=== PATIENT | female | born 1970 | race Two or more races ===

== ENCOUNTER 2020-02-12 17:53 | Inpatient (IN) | payer SELFPAY ==
[~2020-02-12] VITALS: Ht 162.6 cm; Wt 79.4 kg
[2020-02-12 18:08] VITALS: BP 148/90
--- NOTE | 2020-02-12 18:18 | Emergency Room Report ---
History of Present Illness General Chief Complaint: Dizziness Source: Patient, EMS Present Illness HPI 49-year-old female with past medical history of hypertension brought in by ambulance with complaint of dizziness. Dizziness began yesterday while she was at work. Highly positional. Sudden onset. Associated with nausea and nonbloody nonbilious vomiting. Episodes last for 10 seconds at a time and she has had 2 episodes since yesterday. Denies headache, vision changes, head trauma, neck pain, rash, recent travel/ hospitalization/sick contacts. Denies focal weakness The patient's symptoms were gradual onset, severity was moderate, duration since 2 days. Quality: Dizzy Severity: Mild Past medical history: HTN Past surgical history: None Smoking: Denies Alcohol use: Only on holidays Drug use: Denies Review of systems: CONST: No fevers or chills, No night sweats PULMONARY: No productive cough, No shortness of breath CARDIAC: No chest pain, No palpitations GI: + vomiting, +nausea; No diarrhea , No melena_or_BRBPR : No dysuria, No hematuria, No discharge NEURO: +dizziness; No new_focal_weakness_or_numbness, No confusion, No vision changes 14 point Review of Systems is otherwise negative except per HPI Physical Exam: GENERAL: Awake_alert_ nontoxic, no acute distress Spo2 100% on RA -normal EYES: Extraocular muscles are intact. Conjunctivae clear. Lids without swelling ENT: External nose and ear normal_in_appearance. Oropharynx clear. Head_ atraumatic, Moist_oral_mucosa NECK: No JVD. No meningismus. No thyromegaly. Supple. Trachea midline RESP: Normal respiratory effort. Symmetric rise. No stridor. Clear_to_ auscultation_No_rales_No_wheezes CARDIAC: Regular rate and regular rhythm on_auscultation No_significant pedal edema. ABDOMEN: Soft. Nondistended. Nontender_No_rebound_or_guarding. MSK: Normal muscle tone, without rigidity. Extremities without asymmetric deformity or swelling. SKIN: Warm and dry. No visible cyanosis or pallor NEUROLOGIC: Alert, oriented x3. Motor_and_sensation_grossly_intact. No truncal ataxia. Gait_normal Psych: Normal mood and affect, normal judgment and insight - COORDINATION OF CARE Case was discussed with: Patient Any labs and imaging that were ordered were interpreted as part of the medical decision making: Medical Decision Making/Plan: Differential diagnosis for the patients symptoms include causes of peripheral vertigo (including BPPV, vestibular neuritis, Menieres disease, viral labyrinthitis), causes of central vertigo (including cerebellar ischemic stroke , hemorrhagic stroke, acoustic neuroma, vertebrobasilar insufficiency), malignant arrhythmias, obstructive heart disease (critical aortic stenosis, hypertrophic cardiomyopathy), acute anemia, severe dehydration, electrolyte abnormalities, among others. Patient's exam shows no focal neurologic deficits. No abnormal cerebellar signs or nystagmus. She is ambulatory without ataxia. Vascular examination in the bilateral upper and lower extremities is equal and symmetric. Symptoms are highly positional. EKG shows no signs of malignant arrhythmia such as Brugada syndrome, delta wave , epsilon wave, significant heart block, or QTc >500. CXR shows NAD. Troponin is negativex1. Labs show no severe electrolyte derangement such as severe hyponatremia, acidosis, or hypoglycemia. She was insulin and found to be hypokalemic and was repleted here in the emergency department. The patient denies any external blood loss and has no significant pallor or evidence of acute anemia as a cause of their symptoms. Hemoglobin is not severely low, and acute blood transfusion is not indicated. In addition, the patient has no loud murmur or evidence of significant obstructive heart disease, symptoms are not in the setting of exertion. The patient is neurologically intact, with normal cerebellar exam, without any evidence of central vertigo as a cause of their symptoms. They appear well hydrated without any evidence of severe dehydration or acute hypovolemia. The patient was observed for a period of time, with symptoms improved, and no emergent cause of their symptoms. The patient appears stable for discharge and to follow up with their regular doctor. Pertinent results reviewed with the patient. I educated the patient on the current treatment plan including the risks, benefits, and alternatives. I also discussed the extent and limitations of the current evaluation. The patient expressed understanding and agreement with plan. I recommended PMD follow-up within 1-2 days. Also advised that the patient return to the Emergency Department as soon as possible if they experience any new, persistent, or worsening symptoms. 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 Patient History Last Menstrual Period: na Nursing Documentation-PMH Past Medical History: No History, Except For Hx Hypertension: Yes Physical Exam Vital Signs Date Time Temp Pulse Resp B/P (MAP) Pulse Ox O2 Delivery O2 Flow Rate FiO2 02/12/20 17:48 98.4 88 16 148/90 (109) 98 Room Air Sp02 EP Interpretation: reviewed, normal Medical Decision Making Diagnostic Impression: Primary Impression: Dizziness Additional Impressions: Vertigo HTN (hypertension) Nausea & vomiting EKG Diagnostic Results BRENDEN Kenyon 12-lead EKG (interpreted by me) Time: 1758 Indication: Rhythm analysis Tracing visualized and Interpreted by . Rhythm: Normal sinus rhythm Rate: 66 bpm QTc: 454 Morphology: No_significant_ST_elevations_or_depressions, No STEMI Impression: Normal_sinus_rhythm_without_significant_abnormality Chest X-Ray Diagnostic Results Chest X-Ray Diagnostic Results : BRENDEN Kenyon Chest X-Ray: Views: [ 1 ] view(s) Indication: Dizziness Findings: Normal heart size. Mediastinum normal. No infiltrate. Impression: No acute disease The X-ray(s) were independently viewed and interpreted contemporaneously Electronically signed by Marycruz rivera DO Reevaluation Time: 18:47 Last Vital Signs Date Time Temp Pulse Resp B/P (MAP) Pulse Ox O2 Delivery O2 Flow Rate FiO2 02/12/20 18:08 98.4 88 16 148/90 98 Room Air Status: improved Disposition: HOME, SELF-CARE Admit Decision Time: 18:47 Condition: Stable Scripts Ondansetron Odt* (ZOFRAN ODT*) 4 Mg Tab.rapdis 4 MG BC EVERY 8 HOURS, #10 TAB 0 Refills Prov: Marycruz Kenny.O. 02/12/20 Diphenhydramine HCl (Benadryl) 25 Mg Capsule 25 MG PO Q4HR for vertigo for 7 Days, #28 CAP Prov: Marycruz Kenny.O. 02/12/20 Meclizine Hcl* (VERTICALM*) 25 Mg Tablet 25 MG ORAL THREE TIMES A DAY for dizziness for 7 Days, #21 TAB Prov: Marycruz Kenny.O. 02/12/20 Patient Instructions: Vertigo Additional Instructions: Instructions for patient/quill skinner: Follow up with your physician in 1 to 2 days for referral to an ENT specialist to evaluate your peripheral cause of vertigo. Be careful taking meclizine as it can make you drowsy. Do not drive or operate heavy machinery while taking it. Eat healthy foods and limit your salt intake. Follow-up with your doctor sooner if your condition requires a more timely clinical reevaluation. Return to the emergency department immediately if you feel that your condition is worsening or if you have any new or concerning symptoms. Review your discharge instructions and take any prescriptions given as instructed. Marycruz Kenny D.O. Feb 12, 2020 18:18
[2020-02-12] MEDS ORDERED: Meclizine 25mg tab ORAL PRN (18:30)
[2020-02-12 18:31] LABS: ANION GAP 12 mmol/L (5-15); BLOOD UREA NITROGEN 15 mg/dL (7-18); CALCIUM 10.4 MG/DL (8.5-10.1); CARBON DIOXIDE 32 MMOL/L (21-32); CHLORIDE 94 MMOL/L (98-107); CREATININE 1.1 MG/DL (0.55-1.30); POTASSIUM 3.1 MMOL/L (3.5-5.1); SODIUM 138 MMOL/L (136-145)
[2020-02-12 18:34] LABS: BASOPHILS % (AUTO) 1.2 % (0.0-2.0); HEMATOCRIT 45.3 % (37.0-47.0); HEMOGLOBIN 15.1 G/DL (12.0-16.0); LYMPHOCYTES % (AUTO) 18.4 % (20.0-45.0); MEAN CORPUSCULAR VOLUME 88 FL (80-99); MONOCYTES % (AUTO) 6.4 % (1.0-10.0); NEUTROPHILS % (AUTO) 73.9 % (45.0-75.0); PLATELET COUNT 323 K/UL (150-450); RED BLOOD COUNT 5.15 M/UL (4.20-5.40); RED CELL DISTRIBUTION WIDTH 12.6 % (11.6-14.8); WHITE BLOOD COUNT 8.9 K/UL (4.8-10.8)
--- NOTE | 2020-02-12 18:36 | Diagnostic Imaging Report ---
EXAM: CT Head Without Intravenous Contrast CLINICAL HISTORY: DIZZY TECHNIQUE: Axial computed tomography images of the head/brain without intravenous contrast. CTDI is 53mGy and DLP is 965 mGy-cm. One or more of the following dose reduction techniques were used: automated exposure control, adjustment of the mA and/or kV according to patient size, use of iterative reconstruction technique. COMPARISON: No relevant prior studies available. FINDINGS: Brain: Unremarkable. No hemorrhage. No significant white matter disease. No edema. Ventricles: Unremarkable. No ventriculomegaly. Bones/joints: Unremarkable. No acute fracture. Soft tissues: Unremarkable. Sinuses: Unremarkable as visualized. No acute sinusitis. Mastoid air cells: Unremarkable as visualized. No mastoid effusion. IMPRESSION: 1. No acute intracranial abnormality. 2. Unremarkable study.
--- NOTE | 2020-02-12 18:36 | Diagnostic Imaging Report ---
EXAM: XR Chest, 1 View CLINICAL HISTORY: DIZZY TECHNIQUE: Frontal view of the chest. COMPARISON: No relevant prior studies available. FINDINGS: Lungs: Low lung volumes with bronchovascular crowding. No consolidation, pleural effusion, or pneumothorax. Pleural space: See above. Heart: Unremarkable. No cardiomegaly. Mediastinum: Unremarkable. Bones/joints: No acute abnormality IMPRESSION: 1. Low lung volumes with bronchovascular crowding. 2. Otherwise no acute cardiopulmonary disease. 3. If there is continued concern, recommend frontal and lateral chest radiographs or CT.
[2020-02-12 18:42] LABS: ALANINE AMINOTRANSFERASE 41 U/L (12-78); ALBUMIN 4.8 G/DL (3.4-5.0); ALBUMIN/GLOBULIN RATIO 0.9 (1.0-2.7); ALKALINE PHOSPHATASE 78 U/L (46-116); ASPARTATE AMINO TRANSFERASE 24 U/L (15-37); BILIRUBIN,TOTAL 0.6 MG/DL (0.2-1.0)
[2020-02-12] MEDS ORDERED: ONDANSETRON ODT4 MG BC (18:50)
[2020-02-12] MEDS ORDERED: VERTICALM25 MG ORAL (18:50)
[2020-02-12] MEDS ORDERED: BENADRYL25 M3 PO (18:50)
[2020-02-12 18:57] VITALS: BP 152/79
[2020-02-12 21:00] VITALS: BP 142/82
[2020-02-12 23:00] VITALS: BP 138/78
[2020-02-13] MEDS ORDERED: Ketorolac 30mg Inj IV PRN (00:15)
[2020-02-13 04:00] VITALS: BP 141/70
[2020-02-13 05:46] LABS: BASOPHILS % (AUTO) 0.9 % (0.0-2.0); EOSINOPHILS % (AUTO) 0.2 % (0.0-3.0); HEMATOCRIT 41.6 % (37.0-47.0); HEMOGLOBIN 13.6 G/DL (12.0-16.0); LYMPHOCYTES % (AUTO) 25.9 % (20.0-45.0); MEAN CORPUSCULAR VOLUME 89 FL (80-99); MONOCYTES % (AUTO) 7.4 % (1.0-10.0); NEUTROPHILS % (AUTO) 65.5 % (45.0-75.0); PLATELET COUNT 251 K/UL (150-450); RED BLOOD COUNT 4.68 M/UL (4.20-5.40); RED CELL DISTRIBUTION WIDTH 12.1 % (11.6-14.8); WHITE BLOOD COUNT 8.8 K/UL (4.8-10.8)
[2020-02-13 06:13] LABS: ANION GAP 5 mmol/L (5-15); BLOOD UREA NITROGEN 14 mg/dL (7-18); CALCIUM 8.7 MG/DL (8.5-10.1); CARBON DIOXIDE 30 MMOL/L (21-32); CHLORIDE 103 MMOL/L (98-107); POTASSIUM 3.3 MMOL/L (3.5-5.1); SODIUM 137 MMOL/L (136-145)
[2020-02-13 08:00] VITALS: BP 141/72
[2020-02-13] MEDS ORDERED: DiphenhydrAMINE 50mg/ml Inj IVP PRN (08:30)
--- NOTE | 2020-02-13 08:34 | History & Physical ---
History and Physical History & Physicial Patient seen and examine. Full Dictation completed . Sophy Palacios MD Feb 13, 2020 08:34
--- NOTE | 2020-02-13 08:36 | General Progress Note ---
Assessment/Plan Assessment/Plan: Full Dictation in progress Plan: 1- Acute Vertigo MRI-Head Neuro consult- message left for Dr Salgado, anticipating his call symptomatic mgt Subjective Allergies: Coded Allergies: ACETAMINOPHEN (Verified Allergy, Unknown, 02/12/20) HYDROCODONE (Verified Allergy, Unknown, 02/12/20) Objective Last 24 Hour Vital Signs Date Time Temp Pulse Resp B/P (MAP) Pulse Ox O2 Delivery O2 Flow Rate FiO2 02/13/20 08:00 97.5 79 20 141/72 (95) 95 02/13/20 04:00 97.0 72 16 141/70 (93) 97 02/13/20 00:28 98.0 72 18 138/72 98 Room Air 02/13/20 00:28 Room Air 02/12/20 23:00 98.1 71 20 138/78 96 Room Air 02/12/20 21:00 98.0 68 20 142/82 96 Room Air 02/12/20 18:57 98.4 77 17 152/79 95 Room Air 02/12/20 18:08 98.4 88 16 148/90 98 Room Air 02/12/20 18:08 88 16 Room Air 02/12/20 17:48 98.4 88 16 148/90 (109) 98 Room Air Intake and Output 02/12/20 02/13/20 19:00 07:00 Intake Total 450 ml Output Total 0 ml Balance 0 ml 450 ml Intake Oral 450 ml Output Urine Total 0 ml # Voids 2 Laboratory Tests 02/12/20 18:00: White Blood Count 8.9, Red Blood Count 5.15, Hemoglobin 15.1, Hematocrit 45.3, Mean Corpuscular Volume 88, Mean Corpuscular Hemoglobin 29.4, Mean Corpuscular Hemoglobin Concent 33.4, Red Cell Distribution Width 12.6, Platelet Count 323, Mean Platelet Volume 8.7, Neutrophils (%) (Auto) 73.9, Lymphocytes (%) (Auto) 18.4L, Monocytes (%) (Auto) 6.4, Eosinophils (%) (Auto) 0.0, Basophils (%) (Auto ) 1.2, Sodium Level 138, Potassium Level 3.1L, Chloride Level 94L, Carbon Dioxide Level 32, Anion Gap 12, Blood Urea Nitrogen 15, Creatinine 1.1, Estimat Glomerular Filtration Rate 52.8, Glucose Level 145H, Calcium Level 10.4H, Total Bilirubin 0.6, Aspartate Amino Transf (AST/SGOT) 24, Alanine Aminotransferase ( ALT/SGPT) 41, Alkaline Phosphatase 78, Troponin I 0.000, Pro-B-Type Natriuretic Peptide 70, Total Protein 10.0H, Albumin 4.8, Globulin 5.2, Albumin/Globulin Ratio 0.9L, Human Chorionic Gonadotropin, Quant 3 02/12/20 23:59: Troponin I 0.000 02/13/20 04:50: White Blood Count 8.8, Red Blood Count 4.68, Hemoglobin 13.6, Hematocrit 41.6, Mean Corpuscular Volume 89, Mean Corpuscular Hemoglobin 29.1, Mean Corpuscular Hemoglobin Concent 32.7, Red Cell Distribution Width 12.1, Platelet Count 251, Mean Platelet Volume 8.4, Neutrophils (%) (Auto) 65.5, Lymphocytes (%) (Auto) 25.9, Monocytes (%) (Auto) 7.4, Eosinophils (%) (Auto) 0.2, Basophils (%) (Auto ) 0.9, Sodium Level 137, Potassium Level 3.3L, Chloride Level 103, Carbon Dioxide Level 30, Anion Gap 5, Blood Urea Nitrogen 14, Creatinine 1.0, Estimat Glomerular Filtration Rate 58.9, Glucose Level 116H, Calcium Level 8.7, Hemoglobin A1c 5.9, Thyroid Stimulating Hormone (TSH) 1.483 Height (Feet): 5 Height (Inches): 4.00 Weight (Pounds): 175 Sophy Palacios MD Feb 13, 2020 08:36
[2020-02-13] MEDS: hydroCHLOROthiazide 25mg cap ORAL SCH (08:41)
[2020-02-13] MEDS: Pantoprazole Inj IVP SCH (08:42)
[2020-02-13] MEDS: Enoxaparin 40mg Inj SUBQ SCH (08:42)
--- NOTE | 2020-02-13 10:00 | History and Physical Report ---
DATE OF ADMISSION: 02/12/2020 SOURCE OF HISTORY: Patient and EMR. HISTORY OF PRESENT ILLNESS: The patient is a 49-year-old female with a history of psychiatric problem, with unremarkable past medical history, who presented with worsening of the vertigo associated with nausea for the last three days. The patient reported that the symptoms are acute. Denies any weakness. Denies any sensory problems in the extremities. She reported the severity as such that she was not able to keep working, standing, or walking. ALLERGIES: Acetaminophen. FAMILY HISTORY: Noncontributory. SOCIAL HISTORY: The patient lives with her mother. Denies history of illicit drug abuse, smoking, or alcohol abuse. MEDICATIONS: Current hospital medications including, but not limited to, hydrochlorothiazide, Lovenox. PAST MEDICAL AND SURGICAL HISTORY: Unemarkable. PHYSICAL EXAMINATION: VITAL SIGNS: Blood pressure 130/80, temperature 98.2, pulse oximetry 98% on room air, respiratory rate 18, temperature 97. HEAD AND NECK: Atraumatic and normocephalic. CHEST: Clear to auscultation. HEART: S1, S2. Regular rate and rhythm. ABDOMEN: Soft. No organomegaly. MUSCULOSKELETAL: No gross focal motor deficit. NEUROLOGIC: The patient is awake, alert, and oriented x3. No nystagmus. No gross lateralized focal motor deficit is appreciated. LABORATORY DATA: Dated 02/12/2020 shows sodium 138. WBC 8.9, platelets 323,000. ASSESSMENT: 1. Acute vertigo. 2. Hypokalemia. 3. Hypercalcemia. 4. Abnormal blood sugar. 5. GI and DVT prophylaxes. PLAN OF CARE: We will provide symptomatic management. will order MRI brain. I agree with the admission to the medical floor. Sophy Palacios M.D. DR: MEL JOB#: [id number] CC: LEISA
[2020-02-13 12:00] VITALS: BP 153/88
[2020-02-13] MEDS: Meclizine 25mg tab ORAL PRN (13:55)
[2020-02-13 16:00] VITALS: BP 142/78
[2020-02-13 20:00] VITALS: BP 150/83
--- NOTE | 2020-02-13 21:10 | Cardiology Progress Note ---
Assessment/Plan Assessment/Plan The patient is seen and examined, full consult note is dictated. Objective Last 24 Hour Vital Signs Date Time Temp Pulse Resp B/P (MAP) Pulse Ox O2 Delivery O2 Flow Rate FiO2 02/13/20 20:45 Room Air 02/13/20 16:00 97.0 65 18 142/78 (99) 98 02/13/20 12:00 97.9 69 18 153/88 (109) 98 02/13/20 09:00 Room Air 02/13/20 08:00 97.5 79 20 141/72 (95) 95 02/13/20 04:00 97.0 72 16 141/70 (93) 97 02/13/20 00:28 98.0 72 18 138/72 98 Room Air 02/13/20 00:28 Room Air 02/12/20 23:00 98.1 71 20 138/78 96 Room Air Intake and Output 02/12/20 02/13/20 19:00 07:00 Intake Total 450 ml Output Total 0 ml Balance 0 ml 450 ml Intake Oral 450 ml Output Urine Total 0 ml # Voids 2 Laboratory Tests Test 02/12/20 23:59 02/13/20 04:50 Troponin I 0.000 ng/mL (0.000-0.056) White Blood Count 8.8 K/UL (4.8-10.8) Red Blood Count 4.68 M/UL (4.20-5.40) Hemoglobin 13.6 G/DL (12.0-16.0) Hematocrit 41.6 % (37.0-47.0) Mean Corpuscular Volume 89 FL (80-99) Mean Corpuscular Hemoglobin 29.1 PG (27.0-31.0) Mean Corpuscular Hemoglobin Concent 32.7 G/DL (32.0-36.0) Red Cell Distribution Width 12.1 % (11.6-14.8) Platelet Count 251 K/UL (150-450) Mean Platelet Volume 8.4 FL (6.5-10.1) Neutrophils (%) (Auto) 65.5 % (45.0-75.0) Lymphocytes (%) (Auto) 25.9 % (20.0-45.0) Monocytes (%) (Auto) 7.4 % (1.0-10.0) Eosinophils (%) (Auto) 0.2 % (0.0-3.0) Basophils (%) (Auto) 0.9 % (0.0-2.0) Sodium Level 137 MMOL/L (136-145) Potassium Level 3.3 MMOL/L (3.5-5.1) L Chloride Level 103 MMOL/L (98-107) Carbon Dioxide Level 30 MMOL/L (21-32) Anion Gap 5 mmol/L (5-15) Blood Urea Nitrogen 14 mg/dL (7-18) Creatinine 1.0 MG/DL (0.55-1.30) Estimat Glomerular Filtration Rate 58.9 mL/min (>60) Glucose Level 116 MG/DL (74-106) H Hemoglobin A1c 5.9 % (4.3-6.0) Calcium Level 8.7 MG/DL (8.5-10.1) Thyroid Stimulating Hormone (TSH) 1.483 uiU/mL (0.358-3.740) Abner Alonzo MD Feb 13, 2020 21:10
[2020-02-14] VITALS (7 sets, daily range): BP systolic 130–163; BP diastolic 76–87
[2020-02-14] MEDS: hydroCHLOROthiazide 25mg cap ORAL SCH (08:24)
[2020-02-14] MEDS: Meclizine 25mg tab ORAL PRN ×3 (08:24→22:58)
[2020-02-14] MEDS: Pantoprazole Inj IVP SCH (08:24)
[2020-02-14] MEDS: Enoxaparin 40mg Inj SUBQ SCH (08:31)
--- NOTE | 2020-02-14 09:06 | General Progress Note ---
Assessment/Plan Assessment/Plan: S: I am feeling better O: denies any YOUNG or blurry vision PHYSICAL EXAMINATION:HEAD AND NECK: Atraumatic and normocephalic. CHEST: Clear to auscultation.HEART: S1, S2. Regular rate and rhythm.ABDOMEN: Soft. No organomegaly. MUSCULOSKELETAL: No gross focal motor deficit. NEUROLOGIC: The patient is awake, alert, and oriented x3. No nystagmus. No gross lateralized focal motor deficit is appreciated. LABORATORY DATA: Dated 02/13/2020 reveiwd ASSESSMENT: 1. Acute vertigo. 2. Hypokalemia. 3. Hypercalcemia. 4. Abnormal blood sugar. 5. GI and DVT prophylaxes. PLAN OF CARE: pending MRI Pending Neurology eval Subjective Allergies: Coded Allergies: ACETAMINOPHEN (Verified Allergy, Unknown, 02/12/20) HYDROCODONE (Verified Allergy, Unknown, 02/12/20) Objective Last 24 Hour Vital Signs Date Time Temp Pulse Resp B/P (MAP) Pulse Ox O2 Delivery O2 Flow Rate FiO2 02/14/20 08:00 98.1 71 18 148/87 (107) 96 02/14/20 04:00 97.6 66 18 142/80 (100) 96 02/14/20 00:00 98.0 64 19 142/80 (100) 96 02/13/20 20:45 Room Air 02/13/20 20:00 98.2 68 19 150/83 (105) 95 02/13/20 16:00 97.0 65 18 142/78 (99) 98 02/13/20 12:00 97.9 69 18 153/88 (109) 98 Intake and Output 02/13/20 02/14/20 19:00 07:00 Intake Total 400 ml 480 ml Balance 400 ml 480 ml Intake Oral 400 ml 480 ml # Voids 2 3 Height (Feet): 5 Height (Inches): 4.00 Weight (Pounds): 175 Sophy Palacios MD Feb 14, 2020 09:06
--- NOTE | 2020-02-14 16:30 | Consultation ---
DATE OF CONSULTATION: 02/13/2020 CARDIOLOGY CONSULTATION CONSULTING PHYSICIAN: Abner Alonzo MD. REFERRING PHYSICIAN: Sophy Palacios MD. REASON FOR CONSULTATION: Management of dizziness/hypertension crisis. HISTORY OF PRESENT ILLNESS: Patient is a very unfortunate 49-year-old female with a prior history of hypertension who presented to the hospital with complaints of dizziness, which happened acutely associated with nausea and vomiting. According to patient, the dizziness lasted just about 10 seconds and she had 2 separate episodes. It is not quite clear whether the patient had vertigo, but she claims that dizziness was positional. At the time of arrival to this facility, blood pressure was 148/90 mmHg, heart rate was 88. A 12-lead electrocardiogram showed sinus rhythm at a rate of 66 with normal QT interval and no acute ischemic features. Chest x-ray showed low lung volumes, but no acute cardiopulmonary disease. Laboratory findings in the emergency department revealed normal troponin I level at 0 as well as normal proBNP at 70. The patient was admitted to Med/Surg unit. Cardiology consultation was made at request of Dr. Palacios to address and manage dizziness from cardiac standpoint. PAST MEDICAL HISTORY: Hypertension. PAST SURGICAL HISTORY: None. ALLERGIES: No known drug allergies. FAMILY HISTORY: No premature coronary artery disease in first-degree relatives. SOCIAL HISTORY: Denies any tobacco. She is a social drinker on holidays only. Denies any illicit drug use. REVIEW OF SYSTEMS: A 12-system review done essentially negative except as mentioned in history of present illness. MEDICATIONS: List of medications at home includes meclizine 25 mg 3 times a day, Benadryl 25 mg q.4h. for vertigo, and Zofran 4 mg q.8h. PHYSICAL EXAMINATION: VITAL SIGNS: Blood pressure was 148/90, pulse of 88, respirations 16, temperature 98.4 degrees Fahrenheit, O2 saturation 98% on room air. GENERAL: Patient is a very unfortunate 49-year-old female, in no apparent respiratory distress. HEENT: Atraumatic and normocephalic. Anicteric. Pupils are equal, round, and reactive to light and accommodation. Extraocular muscles intact. NECK: JVP less than 5 cm. No carotid bruit. Carotid upstrokes 2+ bilaterally. CARDIOVASCULAR: Normal S1 and S2. Regular rate and rhythm. No murmurs, gallops, or rubs. PMI is at fourth intercostal space in the midclavicular line. LUNGS: Clear to auscultation bilaterally. ABDOMEN: Soft, nontender, nondistended. No hepatosplenomegaly. Positive bowel sounds. EXTREMITIES: No evidence of edema, clubbing, or cyanosis. LABORATORY FINDINGS: Sodium is 138, potassium is 3.1, chloride 94, bicarbonate 32, BUN of 15, creatinine 1.1, glucose is 145, and calcium is 10.4. Troponin I is 0. ProBNP was 70. WBC 8.9, hemoglobin 15.1, hematocrit of 45.3, and platelet count 323. ASSESSMENT AND PLAN: Patient is a very unfortunate 49-year-old female seen in Cardiology consultation. 1. Dizziness. The patient requires to have further neurological assessment including possible MRI of brain to rule out the pathology. From cardiovascular standpoint, a 2D echocardiography will be done to assess left ventricular systolic and diastolic function. Blood pressure will be treated with preferably calcium channel efrain. We will place a hold on diuretic given possible intravascular volume depletion as there are signs of contraction alkalosis on the laboratory. There is also additional hypokalemia. I will continue managing the blood pressure throughout this hospitalization response to amlodipine 5 mg. 2. Hyperglycemia. We are awaiting the hemoglobin A1c for assessment of diabetes mellitus. I would like to thank Dr. Palacios for the courtesy of this consultation. Abner Alonzo M.D. DR: WENDY JOB#: [id number] CC:
--- NOTE | 2020-02-14 23:58 | Cardiology Progress Note ---
Assessment/Plan Assessment/Plan 1. Dizziness, possible intravascular volume depletion as there are signs of contraction alkalosis on the laboratory. 2. HTN, continue amlodipine 5 mg daily. 3. Hyperglycemia, normal HbA1C. Subjective Subjective No cardiac events reported. Objective Last 24 Hour Vital Signs Date Time Temp Pulse Resp B/P (MAP) Pulse Ox O2 Delivery O2 Flow Rate FiO2 02/14/20 21:00 Room Air 02/14/20 16:00 98.4 65 18 130/76 (94) 96 02/14/20 13:00 64 157/82 (107) 02/14/20 12:00 97.9 65 17 163/83 (109) 100 02/14/20 11:58 65 163/83 02/14/20 09:00 Room Air 02/14/20 08:00 98.1 71 18 148/87 (107) 96 02/14/20 04:00 97.6 66 18 142/80 (100) 96 02/14/20 00:00 98.0 64 19 142/80 (100) 96 Intake and Output 02/13/20 02/14/20 19:00 07:00 Intake Total 400 ml 480 ml Balance 400 ml 480 ml Intake Oral 400 ml 480 ml # Voids 2 3 2D Echo: LVEF 60%, RVSP 41 mmHg, Mild LVH Objective HEENT: Atraumatic and normocephalic. Anicteric. Pupils are equal, round, and reactive to light and accommodation. Extraocular muscles intact. NECK: JVP less than 5 cm. No carotid bruit. Carotid upstrokes 2+ bilaterally. CARDIOVASCULAR: Normal S1 and S2. Regular rate and rhythm. No murmurs, gallops, or rubs. PMI is at fourth intercostal space in the midclavicular line. LUNGS: Clear to auscultation bilaterally. ABDOMEN: Soft, nontender, nondistended. No hepatosplenomegaly. Positive bowel sounds. EXTREMITIES: No evidence of edema, clubbing, or cyanosis. Abner Alonzo MD Feb 14, 2020 23:58
[2020-02-15] VITALS: BP 128/73
[2020-02-15 04:00] VITALS: BP 122/72
[2020-02-15 08:00] VITALS: BP 135/62
[2020-02-15] MEDS: Pantoprazole Inj IVP SCH (08:20)
[2020-02-15] MEDS: Enoxaparin 40mg Inj SUBQ SCH (08:21)
[2020-02-15 12:00] VITALS: BP 128/68
--- NOTE | 2020-02-15 12:23 | General Progress Note ---
Assessment/Plan Status: stable Assessment/Plan: S: I am feeling better O: denies any YOUNG or blurry vision PHYSICAL EXAMINATION:HEAD AND NECK: Atraumatic and normocephalic. CHEST: Clear to auscultation.HEART: S1, S2. Regular rate and rhythm.ABDOMEN: Soft. No organomegaly. MUSCULOSKELETAL: No gross focal motor deficit. NEUROLOGIC: The patient is awake, alert, and oriented x3. No nystagmus. No gross lateralized focal motor deficit is appreciated. LABORATORY DATA: Dated 02/14/2020 reveiwd ASSESSMENT: 1. Acute vertigo. 2. Hypokalemia. 3. Hypercalcemia. 4. Abnormal blood sugar. 5. GI and DVT prophylaxes. PLAN OF CARE: pending MRI Pending Neurology eval Subjective Allergies: Coded Allergies: ACETAMINOPHEN (Verified Allergy, Unknown, 02/12/20) HYDROCODONE (Verified Allergy, Unknown, 02/12/20) Objective Last 24 Hour Vital Signs Date Time Temp Pulse Resp B/P (MAP) Pulse Ox O2 Delivery O2 Flow Rate FiO2 02/15/20 12:00 98.2 85 18 128/68 (88) 96 02/15/20 08:20 91 122/72 02/15/20 08:00 Room Air 02/15/20 08:00 98.0 82 18 135/62 (86) 96 02/15/20 04:00 98.7 91 18 122/72 (89) 95 02/15/20 00:00 98.6 100 18 128/73 (91) 95 02/14/20 21:00 Room Air 02/14/20 20:00 98.9 94 18 139/79 (99) 95 02/14/20 16:00 98.4 65 18 130/76 (94) 96 02/14/20 13:00 64 157/82 (107) Intake and Output 02/14/20 02/15/20 19:00 07:00 Intake Total 1200 ml 600 ml Balance 1200 ml 600 ml Intake Oral 600 ml Other 1200 ml # Voids 1 Height (Feet): 5 Height (Inches): 4.00 Weight (Pounds): 175 Sophy Palacios MD Feb 15, 2020 12:23
[2020-02-15 15:39] VITALS: BP 131/72
[2020-02-15] MEDS: Meclizine 25mg tab ORAL PRN ×2 (16:42→22:45)
--- NOTE | 2020-02-15 16:54 | Diagnostic Imaging Report ---
Indication: Vertigo Technique: MRI the brain performed utilizing T1 sagittal, T2 axial, T1 FLAIR axial, T2 FLAIR axial, T2*GRE and diffusion axial images without gadolinium. Comparison: Noncontrast CT of the head 02/12/2020 Findings: No diffusion abnormalities are seen on diffusion weighted imaging. There is no focal abnormal signal dropout on T2*/GRE. The sulci, ventricles and cisterns are within normal limits for age. There is no shift of midline structures. No significant extra-axial collections of fluid or blood are demonstrated.Expected signal flow voids are seen of the vessels of the skull base. Visualized mastoid air cells and paranasal sinuses are unremarkable. No focal bony calvarium or soft tissue lesions are seen. IMPRESSION: No acute intracranial abnormality
[2020-02-15 20:00] VITALS: BP 135/78
--- NOTE | 2020-02-15 20:06 | Cardiology Progress Note ---
Assessment/Plan Assessment/Plan 1. Dizziness, possible intravascular volume depletion as there are signs of contraction alkalosis on the laboratory. 2. HTN, well controlled, continue amlodipine. 3. Hyperglycemia, normal HbA1C. Subjective Subjective No cardiac events reported. Objective Last 24 Hour Vital Signs Date Time Temp Pulse Resp B/P (MAP) Pulse Ox O2 Delivery O2 Flow Rate FiO2 02/15/20 15:39 98.5 79 18 131/72 (91) 95 02/15/20 12:00 98.2 85 18 128/68 (88) 96 02/15/20 08:20 91 122/72 02/15/20 08:00 Room Air 02/15/20 08:00 98.0 82 18 135/62 (86) 96 02/15/20 04:00 98.7 91 18 122/72 (89) 95 02/15/20 00:00 98.6 100 18 128/73 (91) 95 02/14/20 21:00 Room Air Intake and Output 02/14/20 02/15/20 19:00 07:00 Intake Total 1200 ml 600 ml Balance 1200 ml 600 ml Intake Oral 600 ml Other 1200 ml # Voids 1 2D Echo: LVEF 60%, RVSP 41 mmHg, Mild LVH Objective HEENT: Atraumatic and normocephalic. Anicteric. Pupils are equal, round, and reactive to light and accommodation. Extraocular muscles intact. NECK: JVP less than 5 cm. No carotid bruit. Carotid upstrokes 2+ bilaterally. CARDIOVASCULAR: Normal S1 and S2. Regular rate and rhythm. No murmurs, gallops, or rubs. PMI is at fourth intercostal space in the midclavicular line. LUNGS: Clear to auscultation bilaterally. ABDOMEN: Soft, nontender, nondistended. No hepatosplenomegaly. Positive bowel sounds. EXTREMITIES: No evidence of edema, clubbing, or cyanosis. Abner Alonzo MD Feb 15, 2020 20:06
[2020-02-16] VITALS: BP 136/76
[2020-02-16 04:00] VITALS: BP 130/70
[2020-02-16 08:00] VITALS: BP 136/87
[2020-02-16] MEDS: Pantoprazole Inj IVP SCH (08:22)
[2020-02-16] MEDS: Meclizine 25mg tab ORAL PRN ×2 (08:24→14:40)
[2020-02-16] MEDS: Enoxaparin 40mg Inj SUBQ SCH (08:24)
--- NOTE | 2020-02-16 11:09 | General Progress Note ---
Assessment/Plan Status: stable Assessment/Plan: S: I am feeling better O: denies any YOUNG or blurry vision PHYSICAL EXAMINATION:HEAD AND NECK: Atraumatic and normocephalic. CHEST: Clear to auscultation.HEART: S1, S2. Regular rate and rhythm.ABDOMEN: Soft. No organomegaly. MUSCULOSKELETAL: No gross focal motor deficit. NEUROLOGIC: negative for lateralized abnormal finding. The patient is awake, alert, and oriented x3. No nystagmus. No gross lateralized focal motor deficit is appreciated. LABORATORY DATA: Dated 02/14/2020 reveiwd ASSESSMENT: 1. Acute vertigo. 2. Hypokalemia. 3. Hypercalcemia. 4. Abnormal blood sugar. 5. GI and DVT prophylaxes. PLAN OF CARE: Negative MRI Unremarkable exam Advised for outpatient followup for further workup Subjective Allergies: Coded Allergies: ACETAMINOPHEN (Verified Allergy, Unknown, 02/12/20) HYDROCODONE (Verified Allergy, Unknown, 02/12/20) Objective Last 24 Hour Vital Signs Date Time Temp Pulse Resp B/P (MAP) Pulse Ox O2 Delivery O2 Flow Rate FiO2 02/16/20 08:21 65 130/70 02/16/20 08:00 Room Air 02/16/20 08:00 97.9 61 18 136/87 (103) 98 02/16/20 04:00 97.6 65 18 130/70 (90) 97 02/16/20 00:00 97.9 63 18 136/76 (96) 98 02/15/20 21:00 Room Air 02/15/20 20:00 97.7 65 18 135/78 (97) 96 02/15/20 15:39 98.5 79 18 131/72 (91) 95 02/15/20 12:00 98.2 85 18 128/68 (88) 96 Intake and Output 02/15/20 02/16/20 19:00 07:00 Intake Total 1400 ml 800 ml Balance 1400 ml 800 ml Intake Oral 1400 ml 800 ml # Voids 5 3 Height (Feet): 5 Height (Inches): 4.00 Weight (Pounds): 175 Sophy Palacios MD Feb 16, 2020 11:09
[2020-02-16 11:49] VITALS: BP 131/81
[2020-02-16 16:00] VITALS: BP 143/85
--- NOTE | 2020-02-18 07:34 | Discharge Summary ---
Discharge Summary Discharge Summary _ DATE OF ADMISSION: 02/12/2020 DATE OF DISCHARGE: 02/16/2020 DISCHARGED BY: Dr. Palacios REASON FOR ADMISSION: 49 years old female with past medical history of hypertension, was brought by ambulance with complaint of dizziness. Dizziness started suddenly , the day prior to presentation to ED, while she was at work. Dizziness reported as highly positional, associated with nausea and nonbloody nonbilious vomiting. Episodes lasted for 10 seconds at a time . She already had few such episodes. She denied headache, vision changes, head trauma, neck pain, recent traveling/ hospitalizations/sick contact. She denied any focal weakness. Physical exam was essentially stable . Laboratory work-up revealed blood pressure 148/90 , otherwise stable vital signs. Patient initially was discharge from the emergency room with prescription for meclizine and instruction to follow-up with her primary care provider for referral to ENT to evaluate peripheral causes of vertigo. However patient had another episode of nausea and vomiting , was unable to get her balance. Patient subsequently admitted for further management. CT of the head revealed no evidence of acute intracranial bleeding. Laboratory work-up revealed potassium 3.1. Glucose 145. Calcium 10.4. Troponin negative. Urine test was negative. Chest x-ray revealed low lung volumes with bronchovascular crowding. Otherwise no acute cardiopulmonary pathology Calcium 10.4 Patient subsequently admitted to medical surgical floor for further management. CONSULTANTS: wire spiral binder Dr. Alonzo HOSPITAL COURSE: Patient admitted . Patient started on IV hydration. MRI of the brain revealed no acute intracranial abnormalities. Meclizine provided as needed. Potassium was replaced. Antiemetic provided as needed. Repeated troponin was negative as well. Echocardiogram demonstrated preserved ejection fraction of 60% with mild left ventricular hypertrophy. No evidence of wall motion abnormality. Per wire spiral binder dizziness was possibly due to intravascular volume depletion as there were signs of contraction alkalosis in the labs. Blood pressure was managed with calcium channel efrain. Hemoglobin A1c at goal 5.9. TSH within normal limits. GI prophylaxis provided.. With IV hydration calcium down to 8.7 Patient clinically stabilized and was ready for discharge home Patient was advised to follow-up with the ENT as outpatient FINAL DIAGNOSES: Acute vertigo Dizziness , possible due to intravascular volume depletion Hypertension Hyperglycemia/ with normal hemoglobin A1c Hypokalemia Hypercalcemia -resolved DISCHARGE MEDICATIONS: See Medication Reconciliation list. DISCHARGE INSTRUCTIONS: Patient was discharged home. Follow-up with a primary care provider with referral to ENT I have been assigned to dictate discharge summary for this account. I was not involved in the patient's management. Lili Traylor NP Feb 18, 2020 07:34
== END 2020-02-16 17:01 | disposition home or self-care (01) | DRG 641 ==
LOC: EDBD 17:53 → EMR 18:00 → 4E 22:25 → EDBEDREQ 23:23
DX: E87.6 Hypokalemia (principal); E86.9 Volume depletion, unspecified; R42 Dizziness and giddiness; I10 Essential (primary) hypertension; E83.52 Hypercalcemia; Z88.6 Allergy status to analgesic agent; Z88.8 Allergy status to other drugs, medicaments and biological substances; R73.9 Hyperglycemia, unspecified
CPT/HCPCS: 36415; 70450; 70551; 71045; 80048; 80053; 83036; 83880; 84443; 84484; 84702; 85025; 93005; 93306; 96361; 96365; 96375; 99285; J2405; J7030; J8499